=== PATIENT | female | born 2000 | race Caucasian/White ===

== ENCOUNTER 2022-09-20 18:03 | Emergency (ER) | payer MEDICAID, SELFPAY ==
--- NOTE | ~2022-09-20 | US_ITS ---
EXAMINATION: US OBSTETRICAL ULTRASOUND CLINICAL INFORMATION: Vaginal bleeding. COMPARISON: None. LMP: Uncertain. TECHNIQUE: Ultrasound of the maternal pelvis is performed using transabdominal and transvaginal transducers. Transvaginal imaging is performed due to inadequate visualization transabdominally. M-mode Doppler is also performed. FINDINGS: The uterus is anteverted and measures 8.5 x 4.7 x 5.4 cm. The endometrium measures 1.1 cm in thickness without discrete focal abnormality. An intrauterine gestational sac is not identified. The right ovary measures 3.6 x 1.8 x 1.7 cm and it is normal in morphology with preserved flow on color Doppler at the moment of this examination. The left ovary measures 2.9 x 2.1 x 1.9 cm with preserved flow on color Doppler at the moment of this examination. There is a 2.6 x 1.7 x 2.5 cm lesion in the left adnexa with peripheral vascularity, it is uncertain if this is within the ovary or to the ovary within the left adnexa. No free fluid. US/US OB pelvic and transvaginal IMPRESSION: No evidence of intrauterine gestation. There is a 2.6 cm left adnexal lesion in very close proximity to the left ovary. It is uncertain if this is originating from the ovary which would favor a corpus luteal cyst versus adjacent to the ovary which would favor an adnexal ectopic . Recommend OB consultation, correlation with quantitative hCG measurements and a very short-term follow-up pelvic ultrasound. This critical result was discussed with Génesis John at 09/21/2022 1:02 AM and it was ascertained that the content and urgency of the report was understood at the time of direct communication.
[2022-09-20 18:39] VITALS: BP 138/72; PULSE 90; RESP 18; TEMP 36.7; O2SAT 99; BMI 32.1
[2022-09-20 19:09] LABS: Hematocrit 40.9 % (37.0-47.0); Hemoglobin 13.2 g/dl (12.0-16.0); Mean Corpuscular HGB Conc 32.3 g/dl (31.0-35.0); Mean Corpuscular Hemoglobin 28.4 pg (27.0-33.0); Mean Platelet Volume 11.4 fL (9.4-12.3); Platelet Count 376 X10*3/uL (160-400); Red Blood Count 4.65 X10*6/uL (4.20-5.50); Red Cell Distribution Width 13.1 % (11.0-16.0); White Blood Count 10.1 X10*3/uL (4.8-10.8)
[2022-09-20 19:19] LABS: Alanine Aminotransferase 16 U/L (0-31); Albumin Level 4.4 g/dL (3.5-5.0); Alkaline Phosphatase 63 U/L (39-117); Anion Gap 15 (12-20); Aspartate Amino Transferase 15 U/L (5-31); Bilirubin Direct 0.2 mg/dL (0.0-0.5); Bilirubin Total 0.5 mg/dL (0.0-1.0); Blood Urea Nitrogen 10 mg/dL (9-16); Calcium 9.5 mg/dL (8.4-10.2); Carbon Dioxide 23 mmol/L (22-29); Chloride 105 mmol/L (96-108); Creatinine Clr Calc Pharmacy 127.3; Estimated Glomerular Filt Rate > 60; Glucose Random 89 mg/dL (60-115); Lipase 11 U/L (8-78); Sodium 139 mmol/L (135-145); Total Protein 7.1 g/dL (6.5-8.0)
[2022-09-20 19:25] LABS: HCG Quantitative 85 mIU/mL
--- NOTE | 2022-09-20 23:27 | ED.PREGNANCY ---
HPI - General Chief complaint: Vaginal Bleeding Stated complaint: pregant, bleeding and cramping Time Seen by Provider: 09/20/22 22:55 Source: patient Mode of arrival: ambulatory History of Present Illness HPI Narrative: 22-year-old female who presents for vaginal bleeding and is unable to recall her last LMP but knows that she had a positive urine test 5 days ago and had taken a test 3 days prior to that an each day it was negative. She does have a OB appointment this coming Wednesday but states that last night she began having a small amount of vaginal bleeding and then today it has increased to more like ?period bleeding? with subsequent increasing cramping and lower abdominal pain. Related Data Allergies Allergy/AdvReac Type Severity Reaction Status Date / Time Unable to Assess Allergy Verified 09/20/22 23:21 Review of Systems Review of Systems: Pertinent positives and negatives as stated in HPI 10 point review of systems is otherwise negative. PMFSH Past Medical History Source: nursing notes reviewed Social History Social History Advance Directives: No Physical Exam Vital Signs: Vital Signs: Last Vital Signs Temp 98.4 F 09/21/22 02:06 Pulse 74 09/21/22 02:06 Resp 17 09/21/22 02:06 BP 114/81 09/21/22 02:06 Pulse Ox 100 09/21/22 02:06 O2 Del Method 09/21/22 02:06 BMI result Body Mass Index 32.1 VITAL SIGNS: Reviewed. GENERAL: Well developed, well nourished, in no acute distress. HEAD: Normocephalic/atraumatic EYES: PERRLA, EOMI EARS: Ext canals without abnormality OROPHARYNX: no oral lesions noted, posterior pharynx clear LUNGS: Normal breath sounds. No adventitious sounds or accessory muscle use. SpO2<99> CARDIOVASCULAR: Regular rate and rhythm without noted murmurs ABDOMEN: Soft, lower abdominal pain without rebound, non-distended with bowel sounds. MUSCULOSKELETAL: No tenderness, deformities, or effusions noted on gross inspection. EXTREMITIES: No cyanosis, clubbing or edema. SKIN: Inspection of the skin reveals no rashes NEUROLOGIC: Alert and oriented x 4. Strength and sensation to light touch were grossly intact x 4. Course Course Course Narrative: 22-year-old female with history and clinical presentation prompting rule out SAB, ectopic, UTI. On review of investigations ultrasound findings suggest adnexal mass next to the ovary and cannot rule out ectopic, beta hCG -85, I have consulted with Dr. Parikh ([id number]). The plan is to keep the patient until 06:00 when we will redraw of beta hCG and determine whether not she qualifies for methotrexate treatment at that time. 0219: All results and plans were discussed with the patient at bedside with a honing machine operator semiautomatic. She acknowledges understanding. Patient is O negative. MDM - OB/Uterine Contractions Lab Data Result diagrams: 09/20/22 18:46 09/20/22 18:46 Labs: Lab Results 09/20/22 09/20/22 09/20/22 Range/Units 18:16 18:46 18:46 WBC 10.1 (4.8-10.8) X10*3/uL RBC 4.65 (4.20-5.50) X10*6/uL Hgb 13.2 (12.0-16.0) g/dl Hct 40.9 (37.0-47.0) % MCV 88.0 (80.0-98.0) fL MCH 28.4 (27.0-33.0) pg MCHC 32.3 (31.0-35.0) g/dl RDW 13.1 (11.0-16.0) % Plt Count 376 (160-400) X10*3/uL MPV 11.4 (9.4-12.3) fL Absolute Nucleated RBC 0.000 (0.0-0.012) X10*3/uL Nucleated RBC % (auto) 0.0 (0.0-0.2) /100WBC Sodium 139 (135-145) mmol/L Potassium 4.0 (3.3-5.1) mmol/L Chloride 105 (96-108) mmol/L Carbon Dioxide 23 (22-29) mmol/L Anion Gap 15 (12-20) BUN 10 (9-16) mg/dL Creatinine 0.64 (0.5-1.4) mg/dL Estim Creat Clear Calc 127.3 Estimated GFR > 60 Random Glucose 89 (60-115) mg/dL Calcium 9.5 (8.4-10.2) mg/dL Total Bilirubin 0.5 (0.0-1.0) mg/dL Direct Bilirubin 0.2 (0.0-0.5) mg/dL AST 15 (5-31) U/L ALT 16 (0-31) U/L Alkaline Phosphatase 63 (39-117) U/L Total Protein 7.1 (6.5-8.0) g/dL Albumin 4.4 (3.5-5.0) g/dL Lipase 11 (8-78) U/L Beta HCG, Quant mIU/mL Urine Color Urine Appearance Urine pH (5.0-9.0) Ur Specific [place] (1.005-1.025) Urine Protein (Neg-Trace) mg/dL Urine Glucose (UA) (Negative) mg/dL Urine Ketones (Negative) mg/dL Urine Blood (Negative) Urine Nitrite (Negative) Ur Leukocyte Esterase (Negative) Urine RBC (0-2) /HPF Urine WBC (0-5) /HPF Ur Squamous Epith Cells (0-2) /HPF Urine Bacteria (None Seen) Hyaline Casts (0-2) /LPF Urine Test (NEGATIVE) Blood Type O Positive 09/20/22 09/20/22 09/20/22 Range/Units 18:46 23:48 23:48 WBC (4.8-10.8) X10*3/uL RBC (4.20-5.50) X10*6/uL Hgb (12.0-16.0) g/dl Hct (37.0-47.0) % MCV (80.0-98.0) fL MCH (27.0-33.0) pg MCHC (31.0-35.0) g/dl RDW (11.0-16.0) % Plt Count (160-400) X10*3/uL MPV (9.4-12.3) fL Absolute Nucleated RBC (0.0-0.012) X10*3/uL Nucleated RBC % (auto) (0.0-0.2) /100WBC Sodium (135-145) mmol/L Potassium (3.3-5.1) mmol/L Chloride (96-108) mmol/L Carbon Dioxide (22-29) mmol/L Anion Gap (12-20) BUN (9-16) mg/dL Creatinine (0.5-1.4) mg/dL Estim Creat Clear Calc Estimated GFR Random Glucose (60-115) mg/dL Calcium (8.4-10.2) mg/dL Total Bilirubin (0.0-1.0) mg/dL Direct Bilirubin (0.0-0.5) mg/dL AST (5-31) U/L ALT (0-31) U/L Alkaline Phosphatase (39-117) U/L Total Protein (6.5-8.0) g/dL Albumin (3.5-5.0) g/dL Lipase (8-78) U/L Beta HCG, Quant 85 mIU/mL Urine Color Red A Urine Appearance Turbid Urine pH 5.0 (5.0-9.0) Ur Specific [place] >= 1.030 H (1.005-1.025) Urine Protein 300 (3+) H (Neg-Trace) mg/dL Urine Glucose (UA) Negative (Negative) mg/dL Urine Ketones 40 (Negative) mg/dL Urine Blood Large (3+) H (Negative) Urine Nitrite Positive H (Negative) Ur Leukocyte Esterase Moderate (2+) H (Negative) Urine RBC >20 H (0-2) /HPF Urine WBC >50 H (0-5) /HPF Ur Squamous Epith Cells 11-20 (0-2) /HPF Urine Bacteria 4+ (None Seen) Hyaline Casts 3-5 (0-2) /LPF Urine Test WEAKLY POSITIVE H (NEGATIVE) Blood Type Discharge Plan Discharge Clinical Impression: Ectopic , Vaginal bleeding Patient Disposition: Still a Patient
[2022-09-20 23:40] VITALS: BP 139/83; PULSE 81; RESP 19; TEMP 36.8; O2SAT 99
[2022-09-20 23:56] LABS: Appearance Urine Turbid; Color Urine Red; Glucose Urine UA Negative (Negative); Leukocyte Esterase Urine Moderate (2+) (Negative); Nitrite Urine Positive (Negative); Specific Gravity - Urine >= 1.030 (1.005-1.025); UMIC TRIGGER UACC YES; Urine Blood Large (3+) (Negative); Urine Ketones 40 mg/dL (Negative); Urine Protein 300 (3+) mg/dL (Neg-Trace)
[2022-09-20 23:58] LABS: UPreg QC Valid YES; Urine Pregnancy WEAKLY POSITIVE (NEGATIVE)
[2022-09-21 00:08] LABS: Bacteria Urine 4+ (None Seen); RBC Urine >20 /HPF (0-2); UACC Culture Trigger YES; WBC Urine >50 /HPF (0-5)
[2022-09-21 02:06] VITALS: BP 114/81; PULSE 74; RESP 17; TEMP 36.9; O2SAT 100
--- NOTE | 2022-09-21 03:06 | PC.NURSE ---
Pt. resting in bed, talking on phone. No distress noted.
[2022-09-21 04:00] VITALS: BP 117/74; PULSE 89; RESP 17; TEMP 36.6; O2SAT 99
[2022-09-21 06:02] VITALS: BP 121/81; PULSE 92; RESP 18; TEMP 36.6; O2SAT 100
[2022-09-21 07:18] LABS: HCG Quantitative 67 mIU/mL
[2022-09-21 07:29] VITALS: BP 103/47; PULSE 71; RESP 20; TEMP 36.8; O2SAT 100
--- NOTE | 2022-09-21 08:05 | PC.NURSE ---
pt a/o x 4 no sob/meme noted skin pink warm dry speaks in full sentences lungs - cta. abd soft c/o lower abd disc. bs + x 4 quads. c/o 10 migraine headache. pelvic exam done with dr. gill and pct present, pt tolerated well.
--- NOTE | 2022-09-21 08:07 | P.CONOB_ITS ---
VISION CARE ASSOCIATE - CN: HPI Data of Consult Consult date: 09/21/22 Primary Care Provider: Nonstaff Physician Consult Narrative Narrative: I was consulted on Miriam Perez who is a 22 year old female presented to the emergency room with vaginal bleeding and a positive test 5 days ago. LMP unknown.? The patient is having pelvic cramping on and off, no other GI or symptoms. Blood type is O positive, hCG done initially in the emergency room was 85 dropped to 67 within 12 hours. The patient changed 2 pads over 12 hours. cc:: CC: PATIENT RELATIONS DIRECTOR - Review of Systems Review of Systems ROS Unobtainable: All systems reviewed & are unremarkable except as noted in HPI and below Cardiovascular: Denies Palpatations, Loss of consciousness or Chest pain Respiratory: Denies Cough, Wheezing or Shortness of breath Musculoskeletal: Denies Low back pain Gastrointestinal: Denies Heartburn, Constipation, Diarrhea, Nausea or Vomiting Genitourinary: Denies Pain with urination, Burning with urination or Urinary frequency Neurological: Denies Migranes Psychological: Denies Depression OB PMFSH Social History Social History Alcohol intake: current Alcohol intake frequency: holidays/special occasions only Smoked in Last 30 Days: No Use of substances other than those prescribed or required for medical reasons: No Advance Directives: No Meds Allergies Allergy/AdvReac Type Severity Reaction Status Date / Time Unable to Assess Allergy Verified 09/20/22 23:21 VISION CARE ASSOCIATE Physical Exam Vitals Vital signs: Temp Pulse Resp BP Pulse Ox O2 Del Method 98.2 F 71 20 103/47 L 100 09/21/22 07:29 09/21/22 07:29 09/21/22 07:29 09/21/22 07:29 09/21/22 07:29 09/21/22 07:29 BMI result Body Mass Index 32.1 Constitutional General Appearance: Healthy appearing, Well-nourished and Well-developed Psychiatric Mood and Affect: active and alert, normal mood and normal affect Skin Appearance: No rashes and No lesions Lungs Respiratory Effort: No intercostal retractions Auscultation: Clear to auscultation Cardiovascular Auscultation: RRR Abdomen Auscultation/Inspection/Palpation: Normal bowel sounds, Soft, Non-distended and No tenderness Female Genitalia (Pelvic) Bladder/Urethra: Normal meatus Vulva: No lesions Vagina: Nontender Cervix: Grossly normal Adnexa/Parametria: Adnexal Tenderness: None, Adnexal Mass: None, Parametrial Tenderness: None and Parametrial Mass: None Additional Comments: Minimal blood per vagina VISION CARE ASSOCIATE - Results Labs CBC & Chem 7: 09/20/22 18:46 09/20/22 18:46 Labs: Short CBC 09/20/22 Range/Units 18:46 WBC 10.1 (4.8-10.8) X10*3/uL Hgb 13.2 (12.0-16.0) g/dl Hct 40.9 (37.0-47.0) % Plt Count 376 (160-400) X10*3/uL BMP 09/20/22 18:46 Sodium 139 Potassium 4.0 Chloride 105 Carbon Dioxide 23 BUN 10 Creatinine 0.64 Calcium 9.5 Liver Function 09/20/22 Range/Units 18:46 Total Bilirubin 0.5 (0.0-1.0) mg/dL Direct Bilirubin 0.2 (0.0-0.5) mg/dL AST 15 (5-31) U/L ALT 16 (0-31) U/L Alkaline Phosphatase 63 (39-117) U/L Albumin 4.4 (3.5-5.0) g/dL Urine 09/20/22 09/20/22 Range/Units 23:48 23:48 Urine Color Red A Urine Appearance Turbid Urine pH 5.0 (5.0-9.0) Ur Specific [place] >= 1.030 H (1.005-1.025) Urine Protein 300 (3+) H (Neg-Trace) mg/dL Urine Glucose (UA) Negative (Negative) mg/dL Urine Test WEAKLY POSITIVE H (NEGATIVE) Imaging US - abdomen: Radiologist's impression: ITS Impressions Pelvic/Transvag US 09/21/22 00:45 IMPRESSION: No evidence of intrauterine gestation. There is a 2.6 cm left adnexal lesion in very close proximity to the left ovary. It is uncertain if this is originating from the ovary which would favor a corpus luteal cyst versus adjacent to the ovary which would favor an adnexal ectopic . Recommend OB consultation, correlation with quantitative hCG measurements and a very short-term follow-up pelvic ultrasound. This critical result was discussed with Génesis John at 09/21/2022 1:02 AM and it was ascertained that the content and urgency of the report was understood at the time of direct communication. Assessment and Plan (1) First trimester bleeding: Status: Acute With left adnexal lesion possible corpus luteum cyst versus ectopic Plan GC and chlamydia, BV panel and Trichomonas taken. Discussed with the patient the findings on ultrasound showing possible corpus luteum ovarian cyst versus ectopic in addition to decreasing levels of HCG. Differential diagnosis discussed with the patient included either early S AB vs. early ectopic versus with an unlikely possibility of normal intrauterine gestation. Discussed with the patient the decreasing HCG values suggest a failing and may be used to monitor spontaneous resolution, but this decrease should not be considered diagnostic. A woman with decreasing HCG values could still have a possible ectopic and should be monitored until non levels are reached because rupture of an ectopic can occur while levels are decreasing or are very low. Discussed with the patient treatment options including the following: Option 1, expected management, repeat HCG every 48 hours with warning signs of SAB versus ectopic, waiting for the clinical picture is a little more clear to the diagnosis of ectopic versus intrauterine with the risk of delaying diagnosis of an ectopic intra-abdominal rupture and bleeding and risk of morbidity mortality and benefit of preventing methotrexate treatment and its possible exposure of a possible intrauterine and risk of teratogenicity and SAB. Option 2, to start with Suction D and C to rule out intrauterine followed by HCG levels and determined SAB versus ectopic, the risk of this approach being termination of a live intrauterine that is early undetected by ultrasound, the risk being delayed diagnosis of ectopic and/or potential consequences. Option 3 is methotrexate treatment; All the pros and cons risks and benefits of this approach were discussed with the patient including but not limited to, failure rate of MTX ~15%, possible exposure of methotrexate teratogenicity to an early intrauterine not diagnosed by ultrasound with the risk of SAB and severe deformities, possibility of a early intrauterine . The patient decided to proceed with expectant management. Instructions given to the patient to the importance of compliance and timely HCG follow-up in 48 hours for an early and accurate diagnosis, and to call or go to the emergency room if pain or vaginal bleeding occurs, all questions answered, the patient verbalized understanding and agreed with the plan. Will repeat hCG every 48 hours and Follow-up in 48 hours for further management. All questions answered the patient verbalized understanding and agreed with the plan
[2022-09-21 09:54] LABS: BV Int Neg Control Negative (Negative); BV Int Pos Control Positive (Positive)
[2022-09-21 09:57] LABS: CT PCR NOT DETECTED (Not Detect.); NG PCR NOT DETECTED (Not Detect.)
== END 2022-09-21 08:25 | disposition home or self-care (01) ==
PROVIDERS: Obstetrics & Gynecology; Emergency Provider Student in an Organized Health Care Education/Training Program
DX: O00.91 Unspecified ectopic pregnancy with intrauterine pregnancy (principal); N39.0 Urinary tract infection, site not specified; Z79.899 Other long term (current) drug therapy
CPT/HCPCS: 36415; 76801; 76817; 80048; 80076; 81001; 81025; 83690; 84702; 85027; 86900; 86901; 87086; 87480; 87491; 87510; 87591; 87660; 99284